=== PATIENT | male | born 1940 | race Two or more races ===

== ENCOUNTER 2021-12-07 19:17 | Inpatient (IN) | payer OTHER, BC ==
[~2021-12-07] VITALS: Ht 177.8 cm; Wt 108.9 kg
[2021-12-07] MEDS ORDERED: AVAPRO75 MG PO (19:43)
[2021-12-07] MEDS ORDERED: ATORVASTATIN CA10 MG PO (19:43)
[2021-12-07] MEDS ORDERED: ACID REDUCER20 M1 PO (19:43)
[2021-12-07] MEDS ORDERED: TIROSINT100 MCG PO (19:44)
[2021-12-07] MEDS ORDERED: MYRBETRIQ25 MG PO (19:44)
[2021-12-09] MEDS ORDERED: OMEPRAZOLE20 MG (08:31)
== END 2021-12-17 10:31 | disposition designated cancer center or children's hospital (05) | DRG 65 ==
LOC: ER 19:17 → MEDI 12-08 10:21 → ICU-2 12-08 10:21 → MEDI 12-09 17:44
PROVIDERS: ADMIT Internal Medicine; ATTEND Internal Medicine
PROC: B020ZZZ Computerized Tomography (CT Scan) of Brain (ICD-10-PCS; 2021-12-07)
PROC: B030ZZZ Magnetic Resonance Imaging (MRI) of Brain (ICD-10-PCS; 2021-12-07)
PROC: 4A12X4Z Monitoring of Cardiac Electrical Activity, External Approach (ICD-10-PCS; principal; 2021-12-08)
PROC: B24BZZZ Ultrasonography of Heart with Aorta (ICD-10-PCS; 2021-12-08)
PROC: B345ZZZ Ultrasonography of Bilateral Common Carotid Arteries (ICD-10-PCS; 2021-12-08)
PROC: 5A0945A Assistance with Respiratory Ventilation, 24-96 Consecutive Hours, High Flow/Velocity Cannula (ICD-10-PCS; 2021-12-15)
PROC: B54DZZZ Ultrasonography of Bilateral Lower Extremity Veins (ICD-10-PCS; 2021-12-16)
DX: I63.311 Cerebral infarction due to thrombosis of right middle cerebral artery (principal); G81.94 Hemiplegia, unspecified affecting left nondominant side; I69.322 Dysarthria following cerebral infarction; I69.391 Dysphagia following cerebral infarction; J98.01 Acute bronchospasm; N40.1 Benign prostatic hyperplasia with lower urinary tract symptoms; R33.8 Other retention of urine; I10 Essential (primary) hypertension; E11.9 Type 2 diabetes mellitus without complications; E78.5 Hyperlipidemia, unspecified
CPT/HCPCS: 70551